=== PATIENT | female | born 2000 | race Caucasian/White ===

== ENCOUNTER 2024-08-17 11:52 | Outpatient (CLI) | payer BC, MEDICAID, SELFPAY ==
[2024-08-17 13:09] LABS: Basophils Percent Auto 0.3 % (0.2-1.2); Eosinophils Absolute Auto 0.6 K/mm3 (0-0.3); Hematocrit 38.1 % (37.0-47.0); Hemoglobin 12.9 g/dL (12.0-15.0); Immature Granulocyte Absolute 0.06 K/mm3 (0.00-0.031); Immature Granulocyte Percent A 0.4 % (0-0.5); Lymphocytes Absolute Auto 1.67 K/mm3 (0.9-3.2); Lymphocytes Percent Auto 11.8 % (18.3-44.2); Mean Corpuscular HGB Conc 33.9 g/dl (32-36); Mean Corpuscular Volume 88.6 fl (80-100); Mean Platelet Volume 9.9 fl (7.4-10.4); Monocytes Absolute Auto 0.7 K/mm3 (0.1-0.6); Monocytes Percent Auto 4.9 % (2.6-8.5); Neutrophils Absolute Auto 11.2 K/mm3 (1.3-6.7); Neutrophils Percent Auto 78.6 % (45.5-73.1); Platelet Count Result 246 k/mm3 (150-375); Red Cell Distribution Width 12.2 % (11.5-14.5); White Blood Count 14.2 K/mm3 (4.5-10.0)
[2024-08-17 13:19] LABS: Glucose 1 Hour PP 50gm Dose 133 mg/dL
== END 2024-08-17 11:53 | disposition home or self-care (01) ==
LOC: ANHLAB 11:54
PROVIDERS: PCP Nurse Practitioner; Visit Provider Nurse Practitioner Obstetrics & Gynecology
DX: Z34.90 Encounter for supervision of normal pregnancy, unspecified, unspecified trimester (principal); Z3A.00 Weeks of gestation of pregnancy not specified
CPT/HCPCS: 36415; 82947; 85025

== ENCOUNTER 2024-08-28 09:24 | Outpatient (CLI) | payer BC, MEDICAID, SELFPAY ==
[2024-08-28 09:58] LABS: Basophils Percent Auto 0.2 % (0.2-1.2); Eosinophils Absolute Auto 0.6 K/mm3 (0-0.3); Eosinophils Percent Auto 4.7 % (0-4.4); Hematocrit 37.3 % (37.0-47.0); Hemoglobin 12.4 g/dL (12.0-15.0); Immature Granulocyte Absolute 0.07 K/mm3 (0.00-0.031); Immature Granulocyte Percent A 0.5 % (0-0.5); Lymphocytes Absolute Auto 1.89 K/mm3 (0.9-3.2); Lymphocytes Percent Auto 13.9 % (18.3-44.2); Mean Corpuscular HGB Conc 33.2 g/dl (32-36); Mean Corpuscular Volume 87.4 fl (80-100); Mean Platelet Volume 10.3 fl (7.4-10.4); Monocytes Absolute Auto 0.8 K/mm3 (0.1-0.6); Neutrophils Absolute Auto 10.2 K/mm3 (1.3-6.7); Neutrophils Percent Auto 74.7 % (45.5-73.1); Platelet Count Result 245 k/mm3 (150-375); Red Blood Count 4.27 M/mm3 (4.2-5.4); Red Cell Distribution Width 12.3 % (11.5-14.5); White Blood Count 13.6 K/mm3 (4.5-10.0)
[2024-08-28 10:22] LABS: Glucose Fasting Gestational 87 mg/dL (>/=95)
[2024-08-28 10:36] LABS: Rapid Plasma Reagin Non-Reactive (NonReactive)
[2024-08-28 10:51] LABS: HIV 1/2 Ab P24 Ag Result Negative (Negative)
[2024-08-28 11:53] LABS: Glucose 1 Hour Gest 149 mg/dL (>/=180)
[2024-08-28 13:27] LABS: Glucose 2 Hour Gest 131 mg/dL (>/= 155)
[2024-08-28 13:49] LABS: Glucose 3 Hour Gest 71 mg/dL (>/=140)
== END 2024-08-28 09:25 | disposition home or self-care (01) ==
LOC: ANHLAB 09:25
PROVIDERS: PCP Nurse Practitioner; Visit Provider Obstetrics & Gynecology
DX: O99.810 Abnormal glucose complicating pregnancy (principal)
CPT/HCPCS: 36415; 82951; 82952; 85025; 86592; 86703; G0432

== ENCOUNTER 2024-09-08 11:32 | Observation (INO) | payer BC, MEDICAID, SELFPAY ==
[2024-09-08] VITALS (9 sets, daily range): BP systolic 117–135; BP diastolic 69–82; PULSE 89–110; O2SAT 99; BMI 37.8
--- NOTE | ~2024-09-08 | US_ITS ---
EXAMINATION: US OB follow up DATE: 09/08/2024 12:28 INDICATION: Rupture of membranes during third trimester TECHNIQUE: Real-time ultrasound of the pelvis was performed. The interpreting radiologist was not pre sent for the study. COMPARISON: None. FINDINGS: There is a single living fetus in vertex presentation. The placenta is anterior. heart rate is 141 beats per minute (bpm). Oligohydramnios with amniotic fluid index of 5.6 cm (5th%-95%: 8.3-24.5 cm at 33 weeks estimated gestational age). The following biometric data were obtained: BPD: 9.1 cm -> 36 weeks 6 days Head circumference: 32.0 cm -> 36 weeks 0 days Abdominal circumference: 32.7 cm -> 36 weeks 5 days Femur length: 6.7 cm -> 34 weeks 5 days These measurements are concordant. Head circumference to abdominal circumference ratio: 0.98 (normal range 0.92-1.08). Estimated weight: 2851 g (+/-) 428 g or 6 lbs. 5 oz. (+/-) 15 oz. IMPRESSION: 1. Single living fetus in vertex presentation with heart rate of 141 bpm. 2. Oligohydramnios with amniotic fluid index of 5.6 cm (5th%-95%: 8.3-24.5 cm at 33 weeks estimated g estational age). 3. Estimated weight is 96th percentile by Hadlock criteria when 10/21/2024 is used as the estima mayela date of delivery (RICARDO). Please correlate with clinical information or earlier ultrasounds for mos t accurate RICARDO. Reviewed, dictated and finalized at location A. [employer] IMPRESSION: 1. Single living fetus in vertex presentation with heart rate of 141 bpm. 2. Oligohydramnios with amniotic fluid index of 5.6 cm (5th%-95%: 8.3-24.5 cm a t 33 weeks estimated gestational age). 3. Estimated weight is 96th percentile by Hadlock criteria when 10/21/2024 is used as the estimated date of delivery (RICARDO). Please correlate with clinica l information or earlier ultrasounds for most accurate RICARDO.
--- NOTE | 2024-09-08 11:08 | OBADM ---
This patient, Joanne Valera, admitted to the OB room [facility] for observation. Patient/family oriented to hospital policies and general routines including ID bracelet, bed and alarms, visiting hours, pain management, procedures, bathroom and other care routines, personal items, smoking policy, room service/diet, and visiting hours. Patient/Family are encouraged to report perceived risks to care and to ask questions if they do not understand what they are told or what they should do.
[2024-09-08 11:34] LABS: OBXCEM ROM Plus Positive (Negative)
--- NOTE | 2024-09-08 11:55 | PC.NURSE ---
Ultrasound at the bedside for TREASURE.
[2024-09-08 11:59] LABS: Basophils Percent Auto 0.3 % (0.2-1.2); Eosinophils Absolute Auto 0.5 K/mm3 (0-0.3); Eosinophils Percent Auto 3.8 % (0-4.4); Hematocrit 33.7 % (37.0-47.0); Hemoglobin 11.3 g/dL (12.0-15.0); Immature Granulocyte Absolute 0.07 K/mm3 (0.00-0.031); Immature Granulocyte Percent A 0.5 % (0-0.5); Lymphocytes Absolute Auto 1.69 K/mm3 (0.9-3.2); Lymphocytes Percent Auto 11.7 % (18.3-44.2); Mean Corpuscular HGB Conc 33.5 g/dl (32-36); Mean Corpuscular Hemoglobin 28.7 pg (26-34); Mean Corpuscular Volume 85.5 fl (80-100); Mean Platelet Volume 10.4 fl (7.4-10.4); Monocytes Absolute Auto 0.9 K/mm3 (0.1-0.6); Monocytes Percent Auto 6.3 % (2.6-8.5); Neutrophils Absolute Auto 11.2 K/mm3 (1.3-6.7); Neutrophils Percent Auto 77.4 % (45.5-73.1); Platelet Count Result 262 k/mm3 (150-375); Red Blood Count 3.94 M/mm3 (4.2-5.4); Red Cell Distribution Width 12.2 % (11.5-14.5); White Blood Count 14.4 K/mm3 (4.5-10.0)
[2024-09-08 12:49] LABS: HIV 1/2 Ab P24 Ag Result Negative (Negative)
--- NOTE | 2024-09-08 12:50 | PC.NURSE ---
pt thinks her water may have broke on saturday09/06/24
--- NOTE | 2024-09-08 12:57 | PC.NURSE ---
Dr. Hua at the bedside discussing POC with the pt. GBS swab preformed by provider and SVE is closed.
[2024-09-08] MEDS: BETAMETHASONE SOD PHOS/ACETATE 30 MG/5 ML VIAL 12 MG IM (13:13)
--- NOTE | 2024-09-08 13:14 | P.HP_ITS ---
H&P: HPI History of Present Illness Date/Time: 09/08/24 13:14 Chief Complaint: leaking of fluid Narrative: patient is a 24-year-old at 33 and 6 presented today with complaints of leaking since Saturday has had to change her underwear 2-3 times. Denies any contractions. She did have questionable leaking on 08/31 nitrazine negative. She had ROM Plus today and was positive. Ultrasound showed cephalic fetus amniotic fluid low TREASURE was5.6. EFW 6 lb 5 oz. no contractions on exam no signs or symptoms of chorioamnionitis. course significant for late transfer in at 29 weeks. Also history of depression she self stopped antidepressants when she found out she was and was doing well without medication. Review of Systems Review of Systems: All systems reviewed & are unremarkable except as noted in HPI and below Constitutional: Constitutional: Reports no additional constitutional complaints and Denies headache(s) Eyes: Eyes: Denies spots in vision ENT: Reports system reviewed and no additional complaints, except as documented and Denies headache(s) Cardiovascular: Cardiovascular: Denies chest pain and Denies dyspnea Respiratory: Respiratory: Denies dyspnea Gastrointestinal: Gastrointestinal: Reports no additional gastrointestinal complaints Genitourinary: Genitourinary: Reports amenorrhea Musculoskeletal: Musculoskeletal: Reports no additional musculoskeletal complaints Integumentary/Breasts: Skin/Breast: Denies breast mass and Denies rash Neurologic: Denies headache(s) Psychiatric: Psychiatric: Reports no additional psychiatric complaints [facility] Past Medical History Medical History Allergies Anxiety Asthma Surgical History Surgical History [place] teeth extracted Family History Family History Mother Hypertension Depression Asthma Diabetes mellitus Father Heart disease Depression Asthma Social History Social History Smoking status: Never smoker Meds Home Medications and Allergies Home Medications Medication Instructions Recorded Confirmed Type aspirin 81 mg tablet,delayed 81 mg PO DAILY 08/06/24 08/31/24 History release (Adult Aspirin Regimen) docosahexaenoic acid 200 mg mg PO 08/06/24 08/31/24 History capsule ( DHA) RSV vac, preF A and preF B(PF) 120 0.5 ml IM ONCE #1 ea 09/08/24 Rx mcg/0.5 mL IM solution (Abrysvo (PF)) Allergies Allergy/AdvReac Type Severity Reaction Status Date / Time No Known Allergies Allergy Unverified 09/08/24 10:06 Vital Signs Vital Signs - 24 hr 09/08/24 11:28 09/08/24 11:30 09/08/24 11:45 Pulse Rate 106 H 110 H 106 H Blood Pressure 123/79 130/79 117/74 09/08/24 12:00 09/08/24 12:15 09/08/24 12:30 Pulse Rate 99 103 H 93 Blood Pressure 127/82 125/78 127/74 09/08/24 12:45 09/08/24 13:00 Pulse Rate 94 89 Blood Pressure 125/73 135/80 Exam Narrative: Cat 1, 140, occasional ctx Const: General: no acute distress Eyes: General: appearance normal, both eyes and all related structures Resp: Effort & Inspection: normal respiratory effort Cardio: Rate: regular rate GI: Other: Gravid no fundal tenderness no right upper quadrant pain : External Female Exam: normal external appearance Other: Vagina minimal discharge posterior slight thin discharge negative Valsalva cervix closed Skin: General skin exam: no rashes or lesions noted Neuro: Cognition (Neuro): normal cognition Extrem: General: normal to inspection Psych: Mental Status: mental status grossly normal H&P: Results Labs Labs: Short CBC 09/08/24 Range/Units 11:45 WBC 14.4 H (4.5-10.0) K/mm3 Hgb 11.3 L (12.0-15.0) g/dL Hct 33.7 L (37.0-47.0) % Plt Count 262 (150-375) k/mm3 Assessment and Plan Assessment and plan (1) Prolonged premature rupture of membranes: Code(s): O42.10 - Premature rupture of membranes, onset of labor more than 24 hours following rupture, unspecified weeks of gestation Status: Acute Assessment and Plan: 1. admit 2. steroid 3. IV antibiotics with insulin and Zithromax. GBS swab today. 4. She was informed of her diagnosis and informed of risk of prolonged premature rupture membranes and recommendation is usually for delivery at 34 weeks. Unless signs of infection before no signs of infection. She is aware of risk of prematurity to include lung immaturity and needing assistance with breathing. Risk of infection. Risk of transfer. She is aware that there is a chance for premature baby to be transferred if she delivers here. She prefers not have possibility of being from her baby and agrees with transfer to facility with NICU support. Discussed care with MFM Dr. Jammie Londono at [facility] and she as accepts patient for transfer.
[2024-09-08] MEDS: AMPICILLIN 2 GM/NS 100 ML 2 GM/100 ML BAG IVPB (13:19)
[2024-09-08] MEDS: AZITHROMYCIN 500 MG/NS 250 ML 500 MG/250 ML BAG 250 MG IVPB (13:50)
[2024-09-08 14:07] LABS: Rapid Plasma Reagin Non-Reactive (NonReactive)
== END 2024-09-08 14:55 | disposition home or self-care (01) ==
LOC: ANHOBOP 09-09 08:18 → ANHOBPP 09-09 08:18
PROVIDERS: Admitting Provider Obstetrics & Gynecology; PCP Nurse Practitioner; Visit Provider Obstetrics & Gynecology
DX: O42.113 Preterm premature rupture of membranes, onset of labor more than 24 hours following rupture, third trimester (principal); Z3A.33 33 weeks gestation of pregnancy; Z11.4 Encounter for screening for human immunodeficiency virus [HIV]
CPT/HCPCS: 36415; 76816; 84112; 85025; 86592; 86703; 86850; 86900; 86901; 87081; 96372; 96374; 96375; 99199; G0378; G0379; G0432; J0290; J0456; J0702